=== PATIENT | female | born 1990 | race Two or more races ===

== ENCOUNTER 2021-04-12 02:05 | Emergency (ER) | payer OTHER ==
[2021-04-12 02:13] VITALS: BP 155/87; PULSE 78; RESP 18; TEMP 97.6
--- NOTE | 2021-04-12 02:26 | ED ---
Recheck HPI - General Chief Complaint: Recheck/Abnormal Lab/Rx Stated Complaint: Covid test Time Seen by Provider: 04/12/21 02:23 Source: patient, RN notes reviewed Mode of arrival: ambulatory Limitations: no limitations - History of Present Illness Initial Comments: 31-year-old white female presents to the emergency room requesting a rapid Covid test. Patient states that she's coming home from [facility] lives in [place], and [place] let [place] the [place] without a [place] test. Patient denies any symptoms, denies any exposures, patient with small child in room who is also not sick. MD Complaint: other (Patient needs a negative covid test to cross the border to go home to [place]) Symptoms Since Prior Visit: no new symptoms Associated Symptoms: none - Related Data Allergies Allergy/AdvReac Type Severity Reaction Status Date / Time No Known Allergies Allergy Verified 04/12/21 02:13 Review of Systems ROS Statement: Those systems with pertinent positive or pertinent negative responses have been documented in the HPI. ROS Other: All systems not noted in ROS Statement are negative. Past Medical History Past Medical History: Hypertension History of Any Multi-Drug Resistant Organisms: None Reported Past Surgical History: Section Past Psychological History: No Psychological Hx Reported Smoking Status: Never smoker Past Alcohol Use History: None Reported Past Drug Use History: None Reported General Exam Limitations: no limitations General appearance: alert, in no apparent distress Head exam: Present: atraumatic, normocephalic, normal inspection Eye exam: Present: normal appearance, PERRL, EOMI. Absent: scleral icterus, conjunctival injection, periorbital swelling Respiratory exam: Present: normal lung sounds bilaterally. Absent: respiratory distress, wheezes, rales, rhonchi, stridor, chest wall tenderness, accessory muscle use, decreased breath sounds Cardiovascular Exam: Present: regular rate Rectal exam: Present: deferred Extremities exam: Present: full ROM. Absent: tenderness, joint swelling Neurological exam: Present: alert, oriented X3, CN II-XII intact, normal gait Psychiatric exam: Present: normal affect, normal mood Skin exam: Present: warm, dry, intact, normal color. Absent: rash, cyanosis, diaphoretic, pallor Course Vital Signs 04/12/21 02:09 Temperature 97.6 F Pulse Rate 78 Respiratory 18 Rate Blood Pressure 155/87 O2 Sat by Pulse 98 Oximetry Medical Decision Making - Medical Decision Making Rapid Covid test is negative. Patient is without any symptoms. Patient will be discharged home case discussed with Dr. Allen. - Lab Data Lab Results 04/12/21 Range/Units 02:23 Coronavirus (PCR) Not Detected (Not Detectd) Disposition Clinical Impression: Healthy adult Disposition: HOME SELF-CARE Condition: Good Additional Instructions: Follow-up with doctor as needed Is patient prescribed a controlled substance at d/c from ED?: No Referrals: None,Stated [Primary Care Provider] - 1-2 days Time of Disposition: 02:57
== END 2021-04-12 03:00 | disposition home or self-care (01) ==
LOC: EC 02:05
DX: Z01.84 Encounter for antibody response examination (principal); I10 Essential (primary) hypertension
CPT/HCPCS: 87635; 99283